=== PATIENT | male | born 1975 | race Caucasian/White ===

== ENCOUNTER 2020-12-05 07:52 | Emergency (ER) | payer MEDICAID, SELFPAY ==
--- NOTE | 2020-12-05 | ECG_ITS ---
Test Reason : CHESTPAIN Blood Pressure : / mmHG Vent. Rate : 073 BPM Atrial Rate : 073 BPM P-R Int : 156 ms QRS Dur : 086 ms QT Int : 404 ms P-R-T Axes : 047 -04 021 degrees QTc Int : 445 ms Normal sinus rhythm RSR' or QR pattern in V1 suggests right ventricular conduction delay Otherwise normal ECG No previous ECGs available Referred By: Generic ED Physician Electronically Signed By:SONJA LIZAMA MD
--- NOTE | ~2020-12-05 | XR_ITS ---
EXAMINATION: XR CHEST CLINICAL INFORMATION: Chest pain. COMPARISON: Chest radiographs dated 10/18/2015. TECHNIQUE: Frontal view of the chest was obtained. FINDINGS: The lungs are clear. The cardiomediastinal silhouette is normal in size. There is no pleural effusion or pneumothorax. No acute osseous abnormality. XR/XR chest 1V IMPRESSION: No acute cardiopulmonary findings.
--- NOTE | 2020-12-05 08:19 | ED.CHESTPAIN ---
HPI - Chest Pain General Chief Complaint: Chest Pain Stated Complaint: chest pain Time Seen by Provider: 12/05/20 08:13 Source: patient Mode of arrival: ambulatory Limitations: no limitations History of Present Illness MD complaint: chest pain Onset (ago): day(s) (yesterday ) Timing of current episode: episodic Prior episodes: No Onset: during exertion (occured after lifting something heavy at work then hurts when he lifts) Pain location: left chest Pain radiation: none Severity: mild Quality: tightness Relieving factors: nothing Exacerbating factors: palpation and movement Treatment prior to arrival: none Related Data Previous Rx's Medication Instructions Recorded cyclobenzaprine 10 mg tablet 10 mg PO TID PRN #14 tab 12/05/20 lidocaine 4 % topical patch 1 patch TOPICAL DAILY PRN #10 ea 12/05/20 Allergies Allergy/AdvReac Type Severity Reaction Status Date / Time No Known Allergies Allergy Unverified 11/04/19 15:15 Review of Systems Review of Systems: Constitutional : No Weight loss, No Fever, No Chills ENT/Mouth : No sore throat, No Rhinorrhea Eyes: No Eye Pain, No Swelling Cardiovascular : pos Chest Pain, no SOB, no Dyspnea on Exertion, No Orthopnea, No Edema, No Palpitations Respiratory : No Cough, No Sputum Gastrointestinal : no Nausea, No Vomiting, No Diarrhea, No abdominal Pain, No Hematochezia, No Melena Genitourinary : No Dysuria, No Urinary Frequency Musculoskeletal : No joint pain, No Myalgias, No Joint Swelling Skin : No Skin Lesions, No rash Neuro : No Weakness, No Numbness, No Dizziness, No Headache Psych : No Anxiety/Panic, No Depression Heme/Lymph: No Bruising, No Lymphadenopathy Endocrine : No Polyuria, No Polydipsia All other systems reviewed and are negative [facility] Social History Social History Alcohol intake: current Alcohol intake frequency: a few times a month Patient Tobacco Use Status: Never used Tobacco Substance Use Type: Marijuana Advance Directives: No Advance Directives Information Provided: No Physical Exam Vital Signs: Vital Signs: Last Vital Signs Pulse 69 12/05/20 08:25 Resp 20 12/05/20 08:25 BP 132/83 12/05/20 08:25 Pulse Ox 97 12/05/20 08:25 Body Mass Index 39.9 Appearance: Alert. Oriented X3. No acute distress. Eyes: Pupils equal, round and reactive to light. ENT: Pharynx normal. Neck: Normal inspection. Neck supple. CVS: Normal heart rate and rhythm. Pulses normal. Respiratory: No respiratory distress. Breath sounds normal. Chest: ttp along L pectoralis muscle reproduces pain Abdomen: Soft and nontender. Skin: Skin warm and dry. Normal skin color. Normal skin turgor. Extremities: No lower extremity edema. No calf ttp Neuro: Oriented X 3. No motor deficit. No sensory deficit. Course Course Course Narrative: nonischemic EKG negative trop stable for DC MDM - Chest Pain MDM Narrative Medical decision making narrative: 45 yo male with no PMH here with c/o L sided reproduceable CWP on L side after lifting at work yesterday - seems atypical for ACS given it occurs with movement of L arm or palpation to pectoralist muscle. He is PERC negative. I do not think this is dissection. I believe he pulled his pectoralis muscle. At this time will obtain CXR EKG and troponin x 1 Lab Data Result diagrams: 12/05/20 08:35 12/05/20 08:35 Labs: Lab Results 12/05/20 12/05/20 12/05/20 Range/Units 08:35 08:35 08:35 WBC 10.6 (4.8-10.8) X10*3/uL RBC 5.03 (4.60-5.80) X10*6/uL Hgb 14.5 (14.0-18.0) g/dl Hct 43.4 (42-52) % MCV 86.3 (80-98) fL MCH 28.8 (27.0-33.0) pg MCHC 33.4 (31.0-36.0) g/dl RDW 13.2 (11.0-16.0) % Plt Count 145 L (160-400) X10*3/uL MPV 11.4 (9.4-12.4) fL Immature Gran % (Auto) 0.7 H (0.0-0.4) % Neut % (Auto) 65.1 (45-73) % Lymph % (Auto) 25.8 (20-40) % Treasure % (Auto) 6.9 (2-11) % Eos % (Auto) 1.1 (0-4) % Baso % (Auto) 0.4 (0-2) % Lymph # (Auto) 2.7 (1.2-4.9) X10*3/uL [place] # (Auto) 0.7 (0.1-1.2) X10*3/uL Eos # (Auto) 0.1 (0.0-0.4) X10*3/uL Baso # (Auto) 0.0 (0.0-0.2) X10*3/uL Abs Immat Gran (auto) 0.07 H (0.00-0.03) X10*3/uL Absolute Neuts (auto) 6.9 (2.0-8.3) X10*3/uL Absolute Nucleated RBC 0.000 (0.0-0.012) X10*3/uL Nucleated RBC % (auto) 0.0 (0.0-0.2) /100WBC Sodium 139 (135-145) mmol/L Potassium 4.2 (3.3-5.1) mmol/L Chloride 108 (96-108) mmol/L Carbon Dioxide 22 (22-29) mmol/L Anion Gap 13 (12-20) BUN 10 (9-16) mg/dL Creatinine 0.80 (0.5-1.4) mg/dL Estim Creat Clear Calc 144.7 Estimated GFR > 60 Random Glucose 92 (60-115) mg/dL Calcium 8.6 (8.4-10.2) mg/dL Magnesium 2.0 (1.6-2.6) mg/dL Total Bilirubin 0.5 (0.0-1.0) mg/dL Direct Bilirubin 0.2 (0.0-0.5) mg/dL AST 40 H (5-37) U/L ALT 68 H (0-40) U/L Alkaline Phosphatase 101 (39-117) U/L Troponin I High Sens < 3.5 (<3.5-35.0) ng/L Total Protein 7.5 (6.5-8.0) g/dL Albumin 4.2 (3.5-5.0) g/dL Lipase 14 (8-78) U/L ECG Data ECG #1: Attestation: I personally reviewed and interpreted this ECG as follows: ECG interpretation date: 12/05/20 ECG interpretation time: 08:20 Interpretation: Rate: 73 Rhythm: NSR [place]: left Normal P waves. Normal FELIZ. Normal QRS complex. ST T wave : normal no JORDY qTC: normal prior studies: no acute ischemia The study has been interpreted contemporaneously by me. . Discharge Plan Discharge Clinical Impression: Acute chest wall pain Patient Disposition: Home, Self-Care Instructions: Chest Wall Pain (ED) Additional Instructions: return to ED for any worsening symptoms or concerns Prescriptions: New cyclobenzaprine 10 mg tablet 10 mg PO TID PRN (Reason: muscle spasm) Qty: 14 RF: 0 lidocaine 4 % adhesive patch,medicated 1 patch topical DAILY PRN (Reason: pain) Qty: 10 RF: 0 Referrals: [place],[facility] [Primary Care Provider] - 2 days (if not better) Stand Alone Forms: Work/School Release
[2020-12-05 08:25] VITALS: BP 132/83; PULSE 69; RESP 20; O2SAT 97; BMI 39.9
[2020-12-05] MEDS: Cyclobenzaprine HCl 10 MG TABLET PO (08:40)
[2020-12-05 08:41] LABS: MANUAL DIFF FLAG NO
[2020-12-05 08:44] LABS: Basophils Percent Auto 0.4 % (0-2); Eosinophils Absolute Auto 0.1 X10*3/uL (0.0-0.4); Eosinophils Percent Auto 1.1 % (0-4); Hematocrit 43.4 % (42-52); Hemoglobin 14.5 g/dl (14.0-18.0); Imm Gran Abs Auto 0.07 X10*3/uL (0.00-0.03); Imm Gran Pct Auto 0.7 % (0.0-0.4); Lymphocytes Absolute Auto 2.7 X10*3/uL (1.2-4.9); Lymphocytes Percent Auto 25.8 % (20-40); Mean Corpuscular HGB Conc 33.4 g/dl (31.0-36.0); Mean Corpuscular Hemoglobin 28.8 pg (27.0-33.0); Mean Corpuscular Volume 86.3 fL (80-98); Mean Platelet Volume 11.4 fL (9.4-12.4); Monocytes Absolute Auto 0.7 X10*3/uL (0.1-1.2); Monocytes Percent Auto 6.9 % (2-11); Neutrophils Absolute Auto 6.9 X10*3/uL (2.0-8.3); Neutrophils Percent Auto 65.1 % (45-73); Platelet Count 145 X10*3/uL (160-400); Red Blood Count 5.03 X10*6/uL (4.60-5.80); Red Cell Distribution Width 13.2 % (11.0-16.0); White Blood Count 10.6 X10*3/uL (4.8-10.8)
[2020-12-05 09:02] LABS: Alanine Aminotransferase 68 U/L (0-40); Albumin Level 4.2 g/dL (3.5-5.0); Alkaline Phosphatase 101 U/L (39-117); Anion Gap 13 (12-20); Aspartate Amino Transferase 40 U/L (5-37); Bilirubin Direct 0.2 mg/dL (0.0-0.5); Bilirubin Total 0.5 mg/dL (0.0-1.0); Blood Urea Nitrogen 10 mg/dL (9-16); Calcium 8.6 mg/dL (8.4-10.2); Carbon Dioxide 22 mmol/L (22-29); Chloride 108 mmol/L (96-108); Creatinine Clr Calc Pharmacy 144.7; Estimated Glomerular Filt Rate > 60; Glucose Random 92 mg/dL (60-115); Lipase 14 U/L (8-78); Potassium 4.2 mmol/L (3.3-5.1); Sodium 139 mmol/L (135-145); Total Protein 7.5 g/dL (6.5-8.0)
[2020-12-05 09:05] LABS: Troponin-I High Sensitivity < 3.5 ng/L (<3.5-35.0)
[2020-12-05 09:24] LABS: COVID-19 Test Negative (Negative)
== END 2020-12-05 09:42 | disposition home or self-care (01) ==
PROVIDERS: Emergency Provider Emergency Medicine
DX: R07.89 Other chest pain (principal); Z20.822 Contact with and (suspected) exposure to COVID-19
CPT/HCPCS: 36415; 71045; 80048; 80076; 83690; 83735; 84484; 85025; 87635; 93005; 99283; 99284

== ENCOUNTER 2021-07-09 13:40 | Outpatient (REF) | payer MEDICAID, SELFPAY ==
--- NOTE | ~2021-07-09 | XR_ITS ---
EXAMINATION: XR WRIST, LEFT CLINICAL INFORMATION: Pain. COMPARISON: X-ray 06/17/2018 left hand TECHNIQUE: PA, lateral, and oblique views of the left wrist. FINDINGS: There is a linear lucency projected in the region of the triquetrum/pisiform. Findings likely reflect reflect a mildly displaced triquetral fracture, rather than a pisiform fracture.. Mild triscaphe joint arthritis. Mild first CMC arthritis. Soft tissue swelling present. XR/XR wrist LT min 3V IMPRESSION: Mildly displaced fracture, probably reflecting a triquetral fracture rather than a pisiform fracture. Clinically correlate. Further evaluation with CT scan as clinically warranted. The report will be called to the ordering clinician by a [place] [facility] Physician Hot Roll Laminator.
--- NOTE | ~2021-07-09 | XR_ITS ---
EXAMINATION: XR ELBOW, LEFT CLINICAL INFORMATION: Elbow pain COMPARISON: None TECHNIQUE: AP, lateral, and oblique views of the left elbow. FINDINGS: Intra-articular displaced fracture of the radial head, with the fracture lucency at the articular surface measuring approximately 3 mm, with mild lateral displacement of the fracture fragment. The remainder of the bones appear intact. Moderate to large joint effusion present.. XR/XR elbow LT min 3V IMPRESSION: Mildly displaced intra-articular radial head fracture. Moderate to large joint effusion. The report will be called to the ordering clinician by a [place] [facility] Physician Dumper Mold Cleaner.
== END 2021-07-09 13:41 | disposition home or self-care (01) ==
LOC: HO.HOSX 13:40
PROVIDERS: PCP Nurse Practitioner Primary Care; Visit Provider Physician Assistant
DX: S52.122A Displaced fracture of head of left radius, initial encounter for closed fracture (principal); M25.522 Pain in left elbow
CPT/HCPCS: 73080; 73110; 99202

== ENCOUNTER → 2021-07-11 08:05 | Outpatient (BNVA) | payer MEDICAID, SELFPAY | PROVIDERS: PCP Nurse Practitioner Primary Care; Visit Provider Orthopaedic Surgery | DX: S62.112A Displaced fracture of triquetrum [cuneiform] bone, left wrist, initial encounter for closed fracture (principal) | CPT/HCPCS: 29085; 99212 ==

== ENCOUNTER 2021-08-06 08:02 | Outpatient (REF) | payer MEDICAID, SELFPAY ==
--- NOTE | ~2021-08-06 | XR_ITS ---
EXAMINATION: XR WRIST, LEFT CLINICAL INFORMATION: Pain COMPARISON: Wrist radiograph on 07/10/2019 TECHNIQUE: PA, lateral, and oblique views of the left wrist. FINDINGS: Redemonstration of the triquetral fracture. No significant change in orientation. Minimal periosteal reaction. No additional fractures. XR/XR wrist LT min 3V IMPRESSION: Redemonstration of the minimally displaced triquetral fracture.
--- NOTE | ~2021-08-06 | XR_ITS ---
EXAMINATION: XR ELBOW, LEFT CLINICAL INFORMATION: Pain COMPARISON: Left elbow radiograph on 07/09/2021 TECHNIQUE: AP, lateral, and oblique views of the left elbow. FINDINGS: Redemonstration minimally displaced intra-articular radial head fracture. No significant change in alignment when compared to the prior exam. Minimal periosteal reaction. XR/XR elbow LT min 3V IMPRESSION: Redemonstration of the radial head fracture with minimal periosteal reaction.
== END 2021-08-06 08:03 | disposition home or self-care (01) ==
LOC: HO.HOSX 08:02
PROVIDERS: Visit Provider Physician Assistant
DX: M25.522 Pain in left elbow (principal); M25.532 Pain in left wrist
CPT/HCPCS: 73080; 73110

== ENCOUNTER 2021-09-17 12:30 | Outpatient (REF) | payer MEDICAID, SELFPAY ==
--- NOTE | ~2021-09-17 | XR_ITS ---
EXAMINATION: XR LEFT ELBOW XR LEFT WRIST CLINICAL INFORMATION: Pain. COMPARISON: Left wrist 07/06/2021. TECHNIQUE: Left wrist 3 views. Left elbow 3 views. FINDINGS: Left Wrist: Again visualized is a transverse fracture through the width of the triquetrum bone. A small dorsal bone fragment is seen on the lateral view. No new fractures are visualized. There is mild periarticular spurring 1st carpometacarpal joint. No soft tissue swelling seen. Left Elbow: There is soft tissue calcification anterior to the coronoid process of the ulna/anterior radius, likely callus or an enthesophyte. Otherwise, no acute fracture or dislocation seen. Previously visualized radial head fracture has healed. The soft tissues are normal. XR/XR elbow LT min 3V IMPRESSION: Transverse fracture through the width of triquetral bone. It is stable and unchanged. There is no acute fracture seen. Moderate enthesophyte along the anterior coronoid process or anterior to the radius, likely callus formation or enthesophyte. Previously visualized radial head fracture has healed. No acute fracture or dislocation of the elbow. No abnormal joint effusion.
--- NOTE | ~2021-09-17 | XR_ITS ---
EXAMINATION: XR LEFT ELBOW XR LEFT WRIST CLINICAL INFORMATION: Pain. COMPARISON: Left wrist 07/06/2021. TECHNIQUE: Left wrist 3 views. Left elbow 3 views. FINDINGS: Left Wrist: Again visualized is a transverse fracture through the width of the triquetrum bone. A small dorsal bone fragment is seen on the lateral view. No new fractures are visualized. There is mild periarticular spurring 1st carpometacarpal joint. No soft tissue swelling seen. Left Elbow: There is soft tissue calcification anterior to the coronoid process of the ulna/anterior radius, likely callus or an enthesophyte. Otherwise, no acute fracture or dislocation seen. Previously visualized radial head fracture has healed. The soft tissues are normal. XR/XR wrist LT min 3V IMPRESSION: Transverse fracture through the width of triquetral bone. It is stable and unchanged. There is no acute fracture seen. Moderate enthesophyte along the anterior coronoid process or anterior to the radius, likely callus formation or enthesophyte. Previously visualized radial head fracture has healed. No acute fracture or dislocation of the elbow. No abnormal joint effusion.
== END 2021-09-17 12:31 | disposition home or self-care (01) ==
LOC: HO.HOSX 12:30
PROVIDERS: Visit Provider Physician Assistant
DX: M25.522 Pain in left elbow (principal); M25.532 Pain in left wrist
CPT/HCPCS: 73080; 73110

== ENCOUNTER 2021-10-29 12:17 | Outpatient (REF) | payer MEDICAID, SELFPAY | END 2021-10-29 12:18 | disposition home or self-care (01) | LOC: HO.HOSX 12:17 | PROVIDERS: Visit Provider Physician Assistant | DX: Z13.89 Encounter for screening for other disorder (principal) ==

== ENCOUNTER 2021-11-27 | Outpatient (REF) | payer MEDICAID, SELFPAY ==
--- NOTE | ~2021-11-27 | XR_ITS ---
EXAMINATION: XR ELBOW, LEFT CLINICAL INFORMATION: Pain left elbow. COMPARISON: None TECHNIQUE: AP, lateral, and oblique views of the left elbow. FINDINGS: There is a moderate size enthesophytes along the radial head likely cause of pain. The joint space is maintained normal. No loose body seen. There is no fracture, dislocation or abnormal joint effusion. XR/XR elbow LT min 3V IMPRESSION: Moderate size enthesophytes along the radial head likely cause of pain. No visible acute fracture, dislocation or subluxation seen.
== END 2021-11-27 00:01 ==
LOC: HO.HOSX
PROVIDERS: Visit Provider Physician Assistant
DX: M25.522 Pain in left elbow (principal); S52.122D Displaced fracture of head of left radius, subsequent encounter for closed fracture with routine healing; X58.XXXD Exposure to other specified factors, subsequent encounter
CPT/HCPCS: 73080; 99212

== ENCOUNTER 2021-12-18 15:00 | Outpatient (RCR) | payer MEDICAID, SELFPAY ==
--- NOTE | 2021-10-03 15:03 | MHC.OT.EP ---
[address] [phone] Occupational Therapy Plan of Care Date of Evaluation: 10/03/21 Diagnosis: Displaced fracture of head of left radius Assessment: Pt. is a 46 y/o male s/p fall from 2nd floor resulting in L distal radius and radial head fracture. Pt. reports his wrist has healed well with minimal complaints of pain and primary focus will be on L elbow pain. Pt. presents with decreased elbow/forearm ROM, decreased strength and decreased coordination of L hand. Pt. would benefit from skilled OT services to address noted barriers and assist in return to PLOF. Frequency and Duration: The patient will be seen 2x/wk for 4 weeks Short Term Goals: Decrease L elbow pain <2/10 Improve L elbow flex/ext by 10 degrees each Improve L dowel machine operator strength by 10# IND with HEP Wheel Truing Machine Tender Goals: Pain free with BADL's/IADL's Improve elbow ROM to WNL's Improve dowel machine operator strength to >50# IND with progressive HEP Quick DASH score <15% Treatment Plan: Therapeutic Exercise Therapeutic Activity Home Exercise Program Patient Education Edema Control ADL Training MHP Cold Packs Soft Tissue Mobilization Kinesiotaping Electronically Signed By: Diann Chandra MS OTR/L Please Sign and return to therapist. Thank you once again for your referral.
== END 2022-02-27 10:02 | disposition home or self-care (01) ==
LOC: HO.OT 15:00
PROVIDERS: PCP Nurse Practitioner Primary Care; Visit Provider Physician Assistant
DX: S52.122A Displaced fracture of head of left radius, initial encounter for closed fracture (principal)
CPT/HCPCS: 29105; 97035; 97110; 97140; 97165; 97760

== ENCOUNTER 2022-01-03 12:48 | Outpatient (REF) | payer MEDICAID, SELFPAY ==
--- NOTE | ~2022-01-03 | XR_ITS ---
EXAMINATION: XR ELBOW, LEFT CLINICAL INFORMATION: M25.522 - Pain in left elbow COMPARISON: Radiographs left elbow 11/27/2021, 09/17/2021 TECHNIQUE: AP, lateral, and oblique views of the left elbow. FINDINGS: The oblique view shows intra-articular fracture radial head with distraction of approximately 2 mm. No depression or destructive process. There is spurring at the coronoid process and olecranon. No dislocation or destructive process. XR/XR elbow LT min 3V IMPRESSION: Intra-articular fracture radial head with approximately 2 mm distraction. No depression.
== END 2022-01-03 12:49 | disposition home or self-care (01) ==
LOC: HO.HOSX 12:48
PROVIDERS: Visit Provider Physician Assistant
DX: S52.122A Displaced fracture of head of left radius, initial encounter for closed fracture (principal)
CPT/HCPCS: 73080; 99212

== ENCOUNTER → 2022-05-03 09:46 | Outpatient (BNVA) | payer MEDICAID, SELFPAY | PROVIDERS: Visit Provider Physician Assistant | DX: M77.12 Lateral epicondylitis, left elbow (principal) | CPT/HCPCS: 99212 ==

== ENCOUNTER → 2023-07-15 13:52 | Outpatient (RCR) | payer MEDICAID, SELFPAY | END | disposition home or self-care (01) | LOC: HO.OT 12-22 09:38 | PROVIDERS: PCP Nurse Practitioner Primary Care; Visit Provider Nurse Practitioner Primary Care | DX: M79.641 Pain in right hand (principal) ==

== ENCOUNTER 2023-08-03 18:46 | Emergency (ER) | payer MEDICAID, SELFPAY ==
--- NOTE | ~2023-08-03 | XR_ITS ---
EXAMINATION: XR hip LT w PEL1V XR knee LT 3V CLINICAL INFORMATION: atraumatic left hip pain atraumatic left knee pain COMPARISON: None. TECHNIQUE: AP view the pelvis, AP and frog-leg lateral view of the left hip, 3 images. AP, lateral and bilateral oblique views left knee, 4 images. FINDINGS: Left hip: Mild left upper fibrosis with joint space narrowing. The femoral head remains well-seated within the acetabulum. No acute fracture. The pelvic bones intact. No diastasis. The right hip is intact. The visualized lateral sacroiliac joints are maintained. Left knee: Well-corticated calcification adjacent to the medial femoral condyle. Enthesopathic changes off the superior and inferior patella. No evidence of acute fracture. Alignment is anatomic. No significant effusion or soft tissue swelling. XR/XR hip LT w PEL1V IMPRESSION: 1. Mild left hip osteoarthritis. 2. No acute fracture or dislocation of the left knee. 3. 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
--- NOTE | ~2023-08-03 | XR_ITS ---
EXAMINATION: XR hip LT w PEL1V XR knee LT 3V CLINICAL INFORMATION: atraumatic left hip pain atraumatic left knee pain COMPARISON: None. TECHNIQUE: AP view the pelvis, AP and frog-leg lateral view of the left hip, 3 images. AP, lateral and bilateral oblique views left knee, 4 images. FINDINGS: Left hip: Mild left upper fibrosis with joint space narrowing. The femoral head remains well-seated within the acetabulum. No acute fracture. The pelvic bones intact. No diastasis. The right hip is intact. The visualized lateral sacroiliac joints are maintained. Left knee: Well-corticated calcification adjacent to the medial femoral condyle. Enthesopathic changes off the superior and inferior patella. No evidence of acute fracture. Alignment is anatomic. No significant effusion or soft tissue swelling. XR/XR knee LT 3V IMPRESSION: 1. Mild left hip osteoarthritis. 2. No acute fracture or dislocation of the left knee. 3. 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
--- NOTE | 2023-08-03 18:57 | ED.LOWEXIN ---
HPI - Extremity Injury (Lower) General Chief Complaint: Extremity Injury, Lower Stated Complaint: LT knee/hip pain Time Seen by Provider: 08/03/23 19:12 Source: patient Mode of arrival: ambulatory Limitations: no limitations History of Present Illness ED Provider: PORSHA BERG PA-C HPI Narrative: 48 year old male with no significant pmhx presents to the ED today for evaluation left hip pain which began on Friday (5 days ago) when he went to stand from a seated position. Since this time reports continued left hip pain, now radiating into his left knee and left lower leg. Denies injury or trauma. Denies numbness/tingling/weakness of the left lower extremity. Denies recent travel or long car rides. Denies calf pain. Related Data Home Medications ?Medication ?Instructions ?Recorded ?Confirmed ibuprofen 800 mg tablet 800 mg PO TID 08/06/21 Previous Rx's ?Medication ?Instructions ?Recorded cyclobenzaprine 10 mg tablet 10 mg PO TID PRN muscle spasm #14 12/05/20 tabs lidocaine 4 % topical patch 1 patch topical DAILY PRN pain #10 12/05/20 ea Left elbow extension splint #1 ea 12/21/21 naproxen 500 mg tablet 500 mg PO Q8-12H PRN pain (scale 08/03/23 score 4-6) #20 tabs Allergies Allergy/AdvReac Type Severity Reaction Status Date / Time No Known Allergies Allergy Verified 08/03/23 18:59 Review of Systems Review of Systems: Constitutional: No fever, chills, fatigue, night sweats, weight changes ENT/Mouth: No ear pain, hearing loss, nasal congestion, sinus pain, rhinorrhea, sore throat Eyes: No eye pain, swelling, redness, vision changes, discharge Cardio: No chest pain, palpitations, PINEDA, orthopnea, peripheral edema Pulm: No SOB, cough, sputum, wheezing, dyspnea, hemoptysis GI: No nausea, vomiting, hematemesis, abdominal pain, diarrhea, constipation, hematochezia, melena : No irregular bleeding, dysuria, frequency, urgency, hesitancy, hematuria, flank pain, urinary flow changes, urinary incontinence or retention MSK: No back pain, neck pain, joint pain, myalgias, +left knee and left hip pain Skin: No lesions, rashes Neuro: No weakness, numbness, paresthesias, LOC, dizziness, headache Psych: No anxiety/panic, depression, SI/HI, AH/VH All other systems reviewed and are negative. [facility] Past Medical History Attestation statement: The following information was validated with the patient. Source: old records reviewed and nursing notes reviewed Social History Social History Alcohol intake: current Alcohol intake frequency: a few times a month Patient Tobacco Use Status: Never used Tobacco Substance Use Type: Marijuana Advance Directives: No Advance Directives Information Provided: No Do you have a plan to hurt others: No Plan Current occupational status: employed Current occupation: stocking, rt hand Physical Exam Vital Signs: Vital Signs: Last Vital Signs Temp 98.9 F 08/03/23 18:58 Pulse 72 08/03/23 18:58 Resp 20 08/03/23 18:58 BP 157/95 H 08/03/23 18:58 Pulse Ox 98 08/03/23 18:58 O2 Del Method Room Air 08/03/23 18:58 BMI result Body Mass Index 39.9 Hypertensive, vitals otherwise WNL Const: General: cooperative, healthy appearing, comfortable and no acute distress Orientation/consciousness: patient oriented x3 Limitations: no limitations HEENT: Head: Yes normal to inspection, Yes No palpable skull fracture present, Yes normocephalic and Yes atraumatic Eyes: General: appearance normal, both eyes and all related structures Pupils: Equal, round and reactive pupils present Neck: Neck: Yes normal visual inspection Resp: Effort & Inspection: normal respiratory effort and able to speak in complete sentences Auscultation: clear to auscultation bilaterally Cardio: Rate: regular rate Rhythm: regular rhythm Skin: General skin exam: no rashes or lesions noted Neuro: Other: Strength 5/5 intact throughout.? No saddle anesthesia.? Sensation intact to light touch.? Neurovascular intact distally.? General: patient oriented x3 Cranial nerves: Yes Equal, round and reactive pupils present Extrem: Other: + no noted swelling to left hip joint or left knee. No overlying skin changes. No obvious deformity. Full ROM intact to left hip, left knee, left ankle. No peripheral edema. Slightly tender to palpation of anterior left knee without palpable deformity, crepitus, fluctuance, warmth. No calf tenderness. Ambulating with steady gait. Course Course Course Narrative: This is a Rapid Medical Examination (RME) performed by Jair Berg PA-C in triage. Full HPI, ROS, assessment and treatment plan per primary provider in the Main ED. 48-year-old male here for eval of left hip pain which began while attempting to stand from a seated position on Friday. Pain is now radiating to his left knee and left lower leg. denies injury / trauma. denies numbness/tingling/weakness of LE. denies recent travel or long car rides. ambulating with steady gait. Plan: xrs Reevaluation(s) Reevaluation #1: 2016-- x-ray left hip with pelvis showing mild osteoarthritis. No acute fracture or dislocation of left hip for left knee. 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 Not likely acute. Discussed workup results with patient. Will send him home with naproxen. Educated on rice therapy. Patient has remained stable throughout ED visit today. Discussed worrisome signs and symptoms and when to return to the ED. All questions answered at this time. Patient is agreeable with disposition and stable for discharge. Medications Administered Discontinued Medications Generic Name Dose Route Start Last Admin Trade Name Freq PRN Reason Stop Dose Admin Ketorolac Tromethamine 30 mg 08/03/23 19:29 08/03/23 19:40 Ketorolac Tromethamine 30 Mg/Ml Vial IM 08/03/23 19:30 30 mg ONCE ONE Administration Medical Decision Making Medical Decision Making MDM Narrative: 48 year old male with no significant pmhx presents to the ED today for evaluation left hip pain which began on Friday (5 days ago) when he went to stand from a seated position. Patient hypertensive, vitals otherwise WNL. He is nontoxic-appearing and in no acute distress. Lying comfortably on exam bed. On exam, there is no noted swelling to left hip joint or left knee. No overlying skin changes. No obvious deformity. Full ROM intact to left hip, left knee, left ankle. No peripheral edema. Slightly tender to palpation of anterior left knee without palpable deformity, crepitus, fluctuance, warmth. No calf tenderness. Ambulating with steady gait. Skin w/d/i. Differential diagnosis includes MSK sprain, MSK strain, contusion, fracture. Lower suspicion for gout, pseudogout. Unlikely Lyme arthritis, septic joint, neurovascular compromise, compartment syndrome, threat to limb, DVT. Plan for xrs, pain control, and re-evaluation. Differential Diagnosis Differential Diagnoses: The differential diagnosis associated with the presentation includes as above Admission/Observation Not indicated Independent Interpretation I performed an independent interpretation of an: Plain X-Ray Interpretation: XR left knee without fracture, agree with radiologist's interpretation. XR left hip without fracture, agree with radiologist's interpretation. Radiology Impression Discussion of test interpretation with radiology: I have reviewed the radiologist's reading. Radiologist Impression: EXAMINATION: XR hip LT w PEL1V XR knee LT 3V CLINICAL INFORMATION: atraumatic left hip pain atraumatic left knee pain COMPARISON: None. TECHNIQUE: AP view the pelvis, AP and frog-leg lateral view of the left hip, 3 images. AP, lateral and bilateral oblique views left knee, 4 images. FINDINGS: Left hip: Mild left upper fibrosis with joint space narrowing. The femoral head remains well-seated within the acetabulum. No acute fracture. The pelvic bones intact. No diastasis. The right hip is intact. The visualized lateral sacroiliac joints are maintained. Left knee: Well-corticated calcification adjacent to the medial femoral condyle. Enthesopathic changes off the superior and inferior patella. No evidence of acute fracture. Alignment is anatomic. No significant effusion or soft tissue swelling. XR/XR hip LT w PEL1V IMPRESSION: 1. Mild left hip osteoarthritis. 2. No acute fracture or dislocation of the left knee. 3. 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 External Record Review External record reviewed: Inpatient record, Office record, Outpatient record, Prior outpatient labs, Prior outpatient radiology, Primary care record and Outside ED record Prescription Management I considered prescription management with: Pain Medication Social Determinants Patient?s care significantly limited by Social Determinants of Health including: Other Social Determinant of Health Critical Care Time Critical Care Time Critical Care Time: No Discharge Plan Discharge Clinical Impression: Left knee sprain Patient Disposition: Home, Self-Care Instructions: Knee Sprain (ED), How to Use an Elastic Bandage (ED) Additional Instructions: Your xrays today are normal. You likely have a sprain. Treatment for this is RICE therapy - rest, ice, compress, elevate. Naproxen is an anti-inflammatory pain medication that has been sent to your pharmacy for you to take as needed for pain. Do not take this with other NSAIDs such as Motrin or Aleve this may increase risk of GI bleeding. Follow up with PCP. Return with new or worsening symptoms. In the case of an emergency call 911. Prescriptions: New naproxen 500 mg tablet 500 mg PO Q8-12H PRN (Reason: pain (scale score 4-6)) Qty: 20 0RF No Action (DME) Left elbow extension splint See Rx Instructions .Route .MEDSUPPLY Qty: 1 0RF Rx Instructions: As directed cyclobenzaprine 10 mg tablet 10 mg PO TID PRN (Reason: muscle spasm) Qty: 14 0RF lidocaine 4 % adhesive patch,medicated 1 patch topical DAILY PRN (Reason: pain) Qty: 10 0RF Rx Instructions: may leave on for up to 12 hrs ibuprofen 800 mg tablet 800 mg PO TID Stand Alone Forms: Work/School Release Print Language: Hong Konger
[2023-08-03 18:58] VITALS: BP 157/95; PULSE 72; RESP 20; TEMP 37.2; O2SAT 98; BMI 39.9
[2023-08-03] MEDS: Ketorolac Tromethamine 30 MG/ML VIAL IM (19:40)
[2023-08-03 20:32] VITALS: BP 157/95; PULSE 72; RESP 20; TEMP 37.2; O2SAT 98
== END 2023-08-03 20:33 | disposition home or self-care (01) ==
PROVIDERS: Emergency Provider Emergency Medicine
DX: S83.92XA Sprain of unspecified site of left knee, initial encounter (principal); M25.552 Pain in left hip; X58.XXXA Exposure to other specified factors, initial encounter; Y93.9 Activity, unspecified; Y92.9 Unspecified place or not applicable; Y99.9 Unspecified external cause status
CPT/HCPCS: 73502; 73562; 96372; 99283; 99284; J1885

== ENCOUNTER 2023-09-01 11:04 | Outpatient (AMB) | payer OTHER, SELFPAY ==
--- NOTE | 2023-09-01 11:15 | MHC.OFFVIS ---
Vital Signs 09/01/23 11:24 Height 5 ft 7 in Intake Visit Reasons: Newprob-Pain in the left hip Intake Note: Anthony 48 year old male who presents today for an evaluation of left hip pain. Patient reports his pain has been present since around July. States no injury however he had a work injury about 12 years ago where he fell from 12 feet on his left side. His pain has recently improved however he continues to have stabbing pain with any prolong standing or walking. States his pain radiates down his leg and numbness at the lateral aspect of knee. Cold water causes him discomfort causing a burning sensation. Finds some relief with Motrin. He is out of work until October, he is requesting to return to work sooner. Allergies No Known Allergies Allergy (Verified 09/01/23 11:48) Medication List - Last Reconciled 09/01/23 by Daryn Temple PA-C cyclobenzaprine 10 mg PO TID PRN ibuprofen 800 mg PO TID [Left elbow extension splint As directed] lidocaine 4% 1 patch topical DAILY PRN naproxen 500 mg PO Q8-12H PRN HPI HPI Newprob-Pain in the left hip: Details: 48-year-old male who presents to the office today for an evaluation of left hip pain for about a month. He currently states he has improvement in his pain however he continues to have stabbing pain in his hip with prolonged standing, ambulation or getting off a sitting position. His pain radiates down to his leg and he also experiences numbness at the lateral aspect of his knee. He reports discomfort and burning sensation with using cold water. He finds mild relief with Motrin. He has not had any recent injury however he had a work injury where he fell from 12 feet on his left side about 12 years ago. He is currently out of work. [facility] Social History Alcohol intake: current Alcohol intake frequency: a few times a month Patient Tobacco Use Status: Never used Tobacco Substance Use Type: Marijuana Current occupational status: employed Current occupation: stocking, rt hand Review of Systems Const All systems reviewed & are unremarkable except as noted in HPI and below Physical Exam Const General: cooperative and no acute distress Orientation/consciousness: patient oriented x3 Resp Effort & Inspection: normal respiratory effort and able to speak in complete sentences Cardio Peripheral pulses: Peripheral pulses 2+ throughout Neuro General: patient oriented x3 Extrem Other: Left hip: Normal to inspection. No pain with ROM of the hip. Pain along the greater trochanter. No pain with hip flexion or abduction. Negative tenderness along the SI joint, Negative SLR. NVI. Assessment & Plan Assessment & Plan (1) Trochanteric bursitis, left hip: Code(s): M70.62 - Trochanteric bursitis, left hip Category: Medical Plan We discussed options which include PT, NSAIDs and injections. The patient will defer on the injection today and proceed with PT and NSAIDs. If symptoms persist, she will contact me for an injection, otherwise, PRN. Orders: Orders PT Evaluation and Treatment Today M70.62 - Trochanteric bursitis, left hip Patient Instructions: Scribed for Daryn Temple PA-C, by Radames Mckee medical laboratory manager, on 09/01/2023 at 11:15 AM EST.? I, Daryn Temple PA-C, have personally reviewed and agree with the information entered by the scribe. Coding Level of Care Code Est Pt Level 3 (14031) Diagnoses Trochanteric bursitis, left hip M70.62
== END 2023-09-01 11:37 | disposition home or self-care (01) ==
PROVIDERS: Visit Provider Physician Assistant
DX: M70.62 Trochanteric bursitis, left hip (principal)
CPT/HCPCS: 99213

== ENCOUNTER → 2023-09-01 11:04 | Outpatient (BNVA) | payer OTHER, SELFPAY | PROVIDERS: Visit Provider Physician Assistant ==